=== PATIENT | female | born 1985 | race Caucasian/White ===

== ENCOUNTER 2016-10-19 07:49 | Inpatient (IN) | payer BC, OTHER ==
[~2016-10-19] VITALS: Ht 167.6 cm; Wt 57.8 kg
[2016-10-19] MEDS ORDERED: AMOX1TAB15 PO (07:55)
[2016-10-19] MEDS ORDERED: [UNRECOGNIZED DRUG - OTHER] PO (07:55)
[2016-10-19 08:25] LABS: BASOPHILS % (AUTO) 0.5 % (0.0-2.0); EOSINOPHILS % (AUTO) 1.1 % (1.0-6.0); HEMATOCRIT 27.7 % (36-46); HEMOGLOBIN 8.9 g/dL (12.0-16.0); LYMPHOCYTES # (AUTO) 1.5 K/uL (1.0-4.8); LYMPHOCYTES % (AUTO) 29.5 % (22.0-44.0); MEAN CORPUSCULAR HEMOGLOBIN 32.5 pg (26.0-34.0); MEAN CORPUSCULAR HGB CONC 32.2 G/dL (31.0-37.0); MEAN CORPUSCULAR VOLUME 101 fL (80-100); MONOCYTES # (AUTO) 0.4 K/uL (0.1-1.0); MONOCYTES % (AUTO) 7.7 % (2.0-9.0); NEUTROPHILS # (AUTO) 3.1 K/uL (1.8-7.7); NEUTROPHILS % (AUTO) 61.2 % (40.0-70.0); PLATELET COUNT (AUTO) 163 K/uL (150-450); RED BLOOD CELL COUNT(AUTO) 2.73 MIL/uL (4.00-5.20); RED CELL DISTRIBUTION WIDTH 23.5 % (11.5-14.5); WHITE BLOOD COUNT (AUTO) 5.1 K/uL (4.5-11.0)
[2016-10-19] MEDS ORDERED: LORazepam 2 MG/ML VIAL ONE (08:29)
[2016-10-19] MEDS ORDERED: LORazepam 2 MG/ML VIAL IVP ONE (08:30)
[2016-10-19 08:33] LABS: ANION GAP 12 mmol/L (8-16); CARBON DIOXIDE 25 mmol/L (22-29); CHLORIDE 107 mmol/L (98-107); GLOMERULAR FILTR. RATE CALC > 60 mL/min (>60); POTASSIUM 3.5 mmol/L (3.5-5.1); SODIUM SERUM 144 mmol/L (136-145); UREA NITROGEN, BLOOD 12 mg/dL (7-18)
[2016-10-19 08:39] LABS: ALANINE AMINOTRANSFERASE 44 U/L (12-78); ALBUMIN 2.6 g/dL (3.4-5.0); ASPARTATE AMINOTRANSFERASE 79 U/L (15-37); BILIRUBIN,TOTAL 0.4 mg/dL (0.1-1.0)
[2016-10-19 08:52] LABS: RBC MORPHOLOGY COMMENT ABNORMAL RBC MORPH
[2016-10-19] MEDS ORDERED: LevETIRAcetam 1,000 MG in DEXTROSE 5%-WATER 100 ML IV ONE (10:30)
[2016-10-19] MEDS ORDERED: DEXAMETHASONE SOD PHOS 4 MG/ML 5 ML VIAL IVP ONE (10:30)
[2016-10-19] MEDS ORDERED: GADOBUTROL 1 MMOL/ML 10 ML VIAL IVP ONE (10:59)
[2016-10-19] MEDS ORDERED: ONDANSETRON HCL 4 MG/2 ML VIAL IVP PRN ×2 (11:30→12:45)
[2016-10-19] MEDS ORDERED: MORPHINE SULFATE 4 MG/ML SYRINGE IVP PRN (11:30)
[2016-10-19] MEDS ORDERED: DEXAMETHASONE SOD PHOS 4 MG/ML VIAL IVP ONE (12:00)
[2016-10-19] MEDS ORDERED: MIDAZOLAM HCL 2 MG/2 ML VIAL IVP ONE (12:00)
[2016-10-19] MEDS ORDERED: PROPOFOL 1% 20 ML VIAL IVP ONE (12:00)
[2016-10-19] MEDS ORDERED: 0.9% SODIUM CHLORIDE 10 ML VIAL IVP ONE (12:00)
[2016-10-19] MEDS ORDERED: ONDANSETRON HCL 4 MG/2 ML VIAL IVP ONE (12:00)
[2016-10-19] MEDS ORDERED: PHENYLEPHRINE HCL 10 MG/ML VIAL IVP ONE (12:00)
[2016-10-19] MEDS ORDERED: FentaNYL CITRATE-PF 250 MCG/5 ML VIAL IVP ONE (12:00)
[2016-10-19] MEDS ORDERED: METOCLOPRAMIDE HCL 5 MG/ML 2 ML VIAL IVP ONE (12:00)
[2016-10-19] MEDS ORDERED: LIDOCAINE HCL/PF 2% 5 ML VIAL INJ ONE (12:00)
[2016-10-19] MEDS ORDERED: NEOSTIGMINE METHYLSULFATE 1 MG/ML 10 ML VIAL IVP ONE (12:00)
[2016-10-19] MEDS ORDERED: MORPHINE SULFATE/PF 0.5 MG/ML 10 ML AMP IVP ONE (12:00)
[2016-10-19] MEDS ORDERED: ROCURONIUM BROMIDE 10 MG/ML 5 ML VIAL IVP ONE (12:00)
[2016-10-19] MEDS ORDERED: EPHEDrine SULFATE 50 MG/ML VIAL IM ONE (12:00)
[2016-10-19] MEDS ORDERED: GLYCOPYRROLATE 0.2 MG/ML VIAL IM ONE (12:00)
[2016-10-19] MEDS ORDERED: SODIUM CHLORIDE 0.9% 500 ML IV ONE (12:00)
[2016-10-19] MEDS ORDERED: SODIUM CHLORIDE 0.9% 1,000 ML IV ONE ×3 (12:05→19:00)
[2016-10-19 12:36] LABS: PROTHROMBIN TIME 10.8 SEC (9.4-11.6)
[2016-10-19 12:43] LABS: ABG BASE EXCESS -4.3 mmol/L (-2.0-3.0); ABG HCO3 21.3 mmol/L (22.0-26.0); ABG PCO2 33 mmHg (35-45); ABG PH 7.405 (7.350-7.450)
[2016-10-19] MEDS ORDERED: DEXTROSE 50%-WATER 25 GM/50 ML SYRINGE IVP PRN (12:45)
[2016-10-19] MEDS ORDERED: LORazepam 2 MG/ML VIAL IVP PRN (12:45)
[2016-10-19] MEDS ORDERED: POTASSIUM CHL 10 MEQ/WATER 50 ML IV PRN (12:45)
[2016-10-19] MEDS ORDERED: MAGNESIUM HYDROXIDE SUSPENSION 30 ML UDCUP PO PRN (12:45)
[2016-10-19] MEDS ORDERED: ACETAMINOPHEN 325 MG TABLET PO PRN (12:45)
[2016-10-19] MEDS ORDERED: MORPHINE SULFATE 2 MG/ML SYRINGE IVP PRN (13:00)
[2016-10-19] MEDS: SODIUM CHLORIDE 0.9% 1,000 ML IV SCH (13:17)
[2016-10-19] MEDS: PANTOPRAZOLE SODIUM 40 MG/VIAL IVP SCH (13:17)
[2016-10-19 14:30] VITALS: BP 129/77
[2016-10-19] MEDS ORDERED: INFLUENZA VIRUS VACCINE QVS 2016-17 (3YR+)/PF 60 MCG/0.5 ML SYRINGE IM ONE (15:30)
[2016-10-19] MEDS ORDERED: PNEUMOCOCCAL VACCINE POLYVALENT 0.5 ML VIAL [PPSV23] IM ONE (15:30)
[2016-10-19] MEDS ORDERED: SODIUM CHLORIDE 0.9% 10 ML ONE (15:37)
[2016-10-19] MEDS ORDERED: BACITRACIN 28.4 GM OINTMENT TP ONE (15:37)
[2016-10-19] MEDS ORDERED: SODIUM CHLORIDE 0.9% 100 ML ONE (15:38)
[2016-10-19] MEDS ORDERED: MANNITOL 25%-12.5 GM/50 ML VIAL IVP ONE ×2 (15:43→15:50)
[2016-10-19] MEDS ORDERED: FUROSEMIDE 40 MG/4 ML VIAL ONE (15:51)
[2016-10-19] MEDS: DEXAMETHASONE SOD PHOS 4 MG/ML VIAL IVP SCH (16:00)
[2016-10-19 17:00] VITALS: BP 90/60
[2016-10-19] MEDS ORDERED: FOSPHENYTOIN SODIUM 1,000 MGPE in SODIUM CHLORIDE 0.9% 100 ML IV ONE (17:00)
[2016-10-19] MEDS: GELATIN SPONGE,ABSORBABLE 100 MM TP ONE ×2 (17:10→17:36)
[2016-10-19] MEDS: BACITRACIN 50,000 UNITS/VIAL ONE ×2 (17:10→17:35)
[2016-10-19] MEDS: THROMBIN, BOVINE 20000 UNITS/VIAL POWDER TP ONE ×2 (17:10→17:36)
[2016-10-19] MEDS: LIDOCAINE HCL 1%/EPI 1:200,000/PF 30 ML VIAL ONE ×2 (17:10→17:37)
[2016-10-19] MEDS ORDERED: SODIUM CHLORIDE 0.9% 250 ML IV ONE (17:23)
[2016-10-19] MEDS: VANCOMYCIN HCL 1 GM/VIAL ONE ×2 (17:38→18:30)
[2016-10-19 17:54] VITALS: BP 123/62
[2016-10-19] MEDS ORDERED: HYDROmorphone 2 MG/ML SYRINGE IVP PRN (19:15)
[2016-10-19] MEDS ORDERED: MEPERIDINE-PF 25 MG/ML SYRINGE IVP PRN (19:15)
[2016-10-19] MEDS ORDERED: FentaNYL CITRATE-PF 100 MCG/2 ML VIAL IVP PRN (19:15)
[2016-10-19 20:00] VITALS: BP 138/56
[2016-10-19] MEDS: OXYGEN THERAPY IH SCH (21:20)
[2016-10-19] MEDS: OxyCODONE HCL/ACETAMINOPHEN 5-325 MG TABLET PO SCH (21:21)
[2016-10-19] MEDS: DOCUSATE SODIUM 100 MG CAPSULE PO SCH (21:23)
[2016-10-19] MEDS: LevETIRAcetam 500 MG in DEXTROSE 5%-WATER 100 ML IV SCH (21:25)
[2016-10-19] MEDS: INSULIN REGULAR, HUMAN 100 UNITS/ML SQ PRN (21:26)
[2016-10-20] VITALS (7 sets, daily range): BP systolic 118–149; BP diastolic 62–91
[2016-10-20] MEDS: OxyCODONE HCL/ACETAMINOPHEN 5-325 MG TABLET PO SCH ×6 (00:53→20:00)
[2016-10-20] MEDS: DEXAMETHASONE SOD PHOS 4 MG/ML VIAL IVP SCH ×3 (00:53→16:20)
[2016-10-20] MEDS: SODIUM CHLORIDE 0.9% 1,000 ML IV SCH (04:18)
[2016-10-20 05:15] LABS: ALANINE AMINOTRANSFERASE 35 U/L (12-78); ALBUMIN 2.4 g/dL (3.4-5.0); ANION GAP 13 mmol/L (8-16); ASPARTATE AMINOTRANSFERASE 70 U/L (15-37); BILIRUBIN,TOTAL 0.7 mg/dL (0.1-1.0); CALCIUM, TOTAL 8.2 mg/dL (8.8-10.5); CARBON DIOXIDE 19 mmol/L (22-29); CHLORIDE 110 mmol/L (98-107); CREATININE 0.82 mg/dL (0.60-1.30); GLOMERULAR FILTR. RATE CALC > 60 mL/min (>60); POTASSIUM 4.1 mmol/L (3.5-5.1); SODIUM SERUM 142 mmol/L (136-145); TOTAL PROTEIN, SERUM 6.1 g/dL (6.4-8.2); UREA NITROGEN, BLOOD 11 mg/dL (7-18)
[2016-10-20 06:04] LABS: BASOPHILS % (AUTO) 0.2 % (0.0-2.0); EOSINOPHILS % (AUTO) 0.1 % (1.0-6.0); HEMATOCRIT 32.4 % (36-46); HEMOGLOBIN 10.5 g/dL (12.0-16.0); LYMPHOCYTES # (AUTO) 1.2 K/uL (1.0-4.8); LYMPHOCYTES % (AUTO) 13.2 % (22.0-44.0); MEAN CORPUSCULAR HEMOGLOBIN 31.9 pg (26.0-34.0); MEAN CORPUSCULAR HGB CONC 32.5 G/dL (31.0-37.0); MEAN CORPUSCULAR VOLUME 98 fL (80-100); MONOCYTES # (AUTO) 0.4 K/uL (0.1-1.0); MONOCYTES % (AUTO) 4.8 % (2.0-9.0); NEUTROPHILS # (AUTO) 7.7 K/uL (1.8-7.7); NEUTROPHILS % (AUTO) 81.7 % (40.0-70.0); PLATELET COUNT (AUTO) 168 K/uL (150-450); RED BLOOD CELL COUNT(AUTO) 3.29 MIL/uL (4.00-5.20); RED CELL DISTRIBUTION WIDTH 22.4 % (11.5-14.5); WHITE BLOOD COUNT (AUTO) 9.4 K/uL (4.5-11.0)
[2016-10-20 06:52] LABS: GLUCOSE COMMENT 1 Received Meds; GLUCOSE,POINT OF CARE 153 MG/DL (70-110)
[2016-10-20 06:53] LABS: GLUCOSE,POINT OF CARE 124 MG/DL (70-110)
[2016-10-20 07:48] LABS: RBC MORPHOLOGY COMMENT ABNORMAL RBC MORPH
[2016-10-20] MEDS: OXYGEN THERAPY IH SCH ×2 (08:00→20:00)
[2016-10-20] MEDS: PANTOPRAZOLE SODIUM 40 MG/VIAL IVP SCH (08:03)
[2016-10-20] MEDS: DOCUSATE SODIUM 100 MG CAPSULE PO SCH ×2 (08:04→21:00)
[2016-10-20] MEDS: LevETIRAcetam 500 MG in DEXTROSE 5%-WATER 100 ML IV SCH ×2 (10:00→22:04)
[2016-10-20] MEDS: INSULIN REGULAR, HUMAN 100 UNITS/ML SQ PRN (12:43)
[2016-10-20 15:52] LABS: GLUCOSE COMMENT 1 Received Meds; GLUCOSE,POINT OF CARE 168 MG/DL (70-110)
[2016-10-20] MEDS ORDERED: ZOLPIDEM TARTRATE 5 MG TABLET PO ONE (21:00)
[2016-10-20] MEDS ORDERED: SODIUM CHLORIDE 0.9% 50 ML ONE (21:38)
[2016-10-21] MEDS: LevETIRAcetam 500 MG in DEXTROSE 5%-WATER 100 ML IV SCH ×3 (00:02→22:43)
[2016-10-21] MEDS: OxyCODONE HCL/ACETAMINOPHEN 5-325 MG TABLET PO SCH ×8 (00:03→23:41)
[2016-10-21] MEDS: DEXAMETHASONE SOD PHOS 10 MG/ML VIAL IVP SCH ×2 (00:03→08:29)
[2016-10-21 05:00] VITALS: BP 115/65
[2016-10-21 07:11] VITALS: BP 134/71
[2016-10-21 07:52] LABS: GLUCOSE,POINT OF CARE 138 MG/DL (70-110)
[2016-10-21] MEDS: PANTOPRAZOLE SODIUM 40 MG/VIAL IVP SCH (08:34)
[2016-10-21] MEDS: DOCUSATE SODIUM 100 MG CAPSULE PO SCH ×2 (09:00→20:08)
[2016-10-21 09:57] LABS: GLUCOSE,POINT OF CARE 126 MG/DL (70-110)
[2016-10-21] MEDS ORDERED: SODIUM CHLORIDE 0.9% 250 ML IV ONE (10:13)
[2016-10-21] MEDS: OXYGEN THERAPY IH SCH ×2 (10:29→20:12)
[2016-10-21] MEDS ORDERED: ALPRAZolam 0.25 MG TABLET PO PRN (10:30)
[2016-10-21] MEDS ORDERED: SODIUM CHLORIDE 0.9% 1,000 ML IV ONE (11:15)
[2016-10-21 11:34] VITALS: BP 123/92
[2016-10-21 12:00] LABS: BASOPHILS # (AUTO) 0.07 K/uL (0.00-0.20); BASOPHILS % (AUTO) 0.8 % (0.0-2.0); EOSINOPHILS % (AUTO) 0.04 % (1.0-6.0); HEMATOCRIT 29.6 % (36-46); HEMOGLOBIN 9.9 g/dL (12.0-16.0); LYMPHOCYTES # (AUTO) 0.9 K/uL (1.0-4.8); LYMPHOCYTES % (AUTO) 9.8 % (22.0-44.0); MEAN CORPUSCULAR HEMOGLOBIN 32.3 pg (26.0-34.0); MEAN CORPUSCULAR HGB CONC 33.4 G/dL (31.0-37.0); MEAN CORPUSCULAR VOLUME 97 fL (80-100); MONOCYTES # (AUTO) 0.4 K/uL (0.1-1.0); MONOCYTES % (AUTO) 4.8 % (2.0-9.0); NEUTROPHILS # (AUTO) 7.4 K/uL (1.8-7.7); NEUTROPHILS % (AUTO) 84.6 % (40.0-70.0); PLATELET COUNT (AUTO) 157 K/uL (150-450); RED BLOOD CELL COUNT(AUTO) 3.06 MIL/uL (4.00-5.20); RED CELL DISTRIBUTION WIDTH 23.3 % (11.5-14.5); WHITE BLOOD COUNT (AUTO) 8.8 K/uL (4.5-11.0)
[2016-10-21 12:24] LABS: ALANINE AMINOTRANSFERASE 32 U/L (12-78); ALBUMIN 2.3 g/dL (3.4-5.0); ANION GAP 8 mmol/L (8-16); ASPARTATE AMINOTRANSFERASE 73 U/L (15-37); BILIRUBIN,TOTAL 0.5 mg/dL (0.1-1.0); CALCIUM, TOTAL 8.1 mg/dL (8.8-10.5); CARBON DIOXIDE 24 mmol/L (22-29); CHLORIDE 113 mmol/L (98-107); CREATININE 0.72 mg/dL (0.60-1.30); GLOMERULAR FILTR. RATE CALC > 60 mL/min (>60); POTASSIUM 3.4 mmol/L (3.5-5.1); SODIUM SERUM 145 mmol/L (136-145); TOTAL PROTEIN, SERUM 5.8 g/dL (6.4-8.2); UREA NITROGEN, BLOOD 9 mg/dL (7-18)
[2016-10-21 13:00] LABS: RBC MORPHOLOGY COMMENT ABNORMAL RBC MORPH
[2016-10-21 15:36] VITALS: BP 124/69
[2016-10-21] MEDS: POTASSIUM CHLORIDE 20 MEQ ER TABLET PO PRN (16:17)
[2016-10-21 19:55] VITALS: BP 128/70
[2016-10-21] MEDS ORDERED: SODIUM CHLORIDE 0.9% 50 ML ONE (22:24)
[2016-10-21 23:55] VITALS: BP 124/72
[2016-10-22] MEDS: POTASSIUM CHLORIDE 20 MEQ ER TABLET PO PRN (01:09)
[2016-10-22 04:16] VITALS: BP 119/68
[2016-10-22] MEDS: OxyCODONE HCL/ACETAMINOPHEN 5-325 MG TABLET PO SCH ×4 (04:35→12:40)
[2016-10-22 07:28] VITALS: BP 103/57
[2016-10-22] MEDS: OXYGEN THERAPY IH SCH (11:18)
[2016-10-22] MEDS: DOCUSATE SODIUM 100 MG CAPSULE PO SCH (11:18)
[2016-10-22] MEDS: PANTOPRAZOLE SODIUM 40 MG/VIAL IVP SCH (11:18)
[2016-10-22] MEDS: LevETIRAcetam 500 MG in DEXTROSE 5%-WATER 100 ML IV SCH (12:34)
[2016-10-22 13:12] VITALS: BP 132/83
[2016-10-22] MEDS ORDERED: DOCU-174 PO (13:33)
[2016-10-22] MEDS ORDERED: PERCT PO (13:34)
[2016-10-22] MEDS ORDERED: LEVE500T8 PO (13:34)
== END 2016-10-22 13:50 | disposition home or self-care (01) | DRG 25 ==
LOC: EMS 07:52 → ICU 13:17 → 5S 10-20 21:10
PROVIDERS: ADMIT Internal Medicine; ATTEND Internal Medicine
PROC: 03HY32Z Insertion of Monitoring Device into Upper Artery, Percutaneous Approach (ICD-10-PCS; 2016-10-19)
PROC: 4A133B1 Monitoring of Arterial Pressure, Peripheral, Percutaneous Approach (ICD-10-PCS; 2016-10-19)
PROC: 4A133J1 Monitoring of Arterial Pulse, Peripheral, Percutaneous Approach (ICD-10-PCS; 2016-10-19)
PROC: 00B00ZZ Excision of Brain, Open Approach (ICD-10-PCS; principal; 2016-10-19 17:10)
DX: C79.31 Secondary malignant neoplasm of brain (principal); G93.6 Cerebral edema; E44.0 Moderate protein-calorie malnutrition; C50.919 Malignant neoplasm of unspecified site of unspecified female breast; G40.409 Other generalized epilepsy and epileptic syndromes, not intractable, without status epilepticus; F44.9 Dissociative and conversion disorder, unspecified; D63.8 Anemia in other chronic diseases classified elsewhere; J32.9 Chronic sinusitis, unspecified; Z92.3 Personal history of irradiation; Z79.899 Other long term (current) drug therapy; Z79.2 Long term (current) use of antibiotics; Z90.13 Acquired absence of bilateral breasts and nipples; Z98.82 Breast implant status; Z68.20 Body mass index [BMI] 20.0-20.9, adult
CPT/HCPCS: 51702; 70450; 70552; 70553; 72125; 82805; 82962; 84132; 86850; 86900; 86901; 86920; 87081; 88307; 88331; 88341; 88342; 93931; 93971; 96365; 96366; 96375; 97162; 97166; 99291; A9585; C1713; C9113; J0690; J0712; J1100; J1940; J2060; J2150; J2250; J2274; J2370; J2405; J2704; J2765; J3010; J3370; J3490; J7030; J7040; J7050; J7060; P9016; Q2009